=== PATIENT | female | born 1965 | race American Indian/Alaskan Native ===

== ENCOUNTER 2020-09-26 15:27 | Emergency (ER) | payer BC ==
--- NOTE | 2020-09-26 16:07 | Event Note ---
ED Screening Note Date of service: 09/26/20 Time: 16:06 ED Screening Note: 54-year-old -Maur[place] female presents to the emergency room for acute left side flank pain with hematuria. This initial assessment/diagnostic orders/clinical plan/treatment(s) is/are subject to change based on patients health status, clinical progression and re- assessment by fellow clinical providers in the ED. Further treatment and workup at subsequent clinical providers discretion. Patient/guardian urged not to elope from the ED as their condition may be serious if not clinically assessed and managed. Initial orders include:
[2020-09-26 16:38] LABS: Bilirubin,Urine NEG (Negative); Blood,Urine LG (Negative); Color,Urine Yellow (Yellow); Mucus,Urine 1+ /HPF; Protein,Urine <15 mg/dL mg/dL (Negative); Urobilinogen,Urine < 2.0 mg/dL (<2.0)
[2020-09-26] MEDS ORDERED: KETOROLAC 30 MG/1 ML INJ IV ONE (18:38)
[2020-09-26] MEDS ORDERED: SODIUM CHLORIDE 0.9% 1000 ML 1,000 ML IV ONE (18:38)
--- NOTE | 2020-09-26 19:29 | Emergency Department Report ---
ED Abdominal Pain HPI - General Chief Complaint: Urogenital-Female Stated Complaint: LT SIDE PAIN/BLOOD IN STOOL Source: patient Mode of arrival: Ambulatory Limitations: No Limitations - History of Present Illness Initial Comments: Patient is a 54-year-old -Beninese female with of past medical history kidney stones who presents to the ED with complaint of acute onset persistent severe left flank pain that radiates to the left lower back, left lower quadrant and suprapubic area with nausea constantly for the last 2 days. Patient also complains of dysuria, urinary frequency and urgency. Patient states that the pain has worsened especially in the last 12 hours. Patient states that she has not been able to sleep or rest because of constant sharp pain in the left flank that radiates to the suprapubic and left lower quadrant area. Patient states that initially she had thought that the pain was from her back but it got worse and decided come to the ED for evaluation. Patient denies fever, chills, vomiting, diarrhea, dizziness, syncope, cough, chest pain, shortness of breath, fall, heavy lifting, traumatic injury, numbness and tingling or weakness of lower extremities bilaterally, vaginal bleeding or vaginal discharge. MD Complaint: abdominal pain (suprapubic), flank pain (left), other (nausea) -: Sudden, days(s) (2) Location: LLQ, suprapubic, L flank Radiation: LLQ, suprapubic, L flank Migration to: no migration Severity scale (0 -10): 10 Quality: aching, sharp Consistency: constant Improves With: nothing Worsens With: nothing Associated Symptoms: denies other symptoms, nausea, anorexia. denies: vomiting, diarrhea, fever, chills, constipation, dysuria, hematemesis, hematochezia, melena, hematuria, syncope - Related Data Previous Rx's Medication Instructions Recorded Last Taken Type HYDROcodone/APAP 5-325 [[place] 1 each PO Q6HR PRN #10 tablet 11/13/18 Unknown Rx 5/325] Prednisone [predniSONE 10 mg 10 mg PO .TAPER #1 tab.ds.pk 11/13/18 Unknown Rx (6-Day Pack, 21 Tabs)] Acetaminophen/Codeine [Tylenol 1 tab PO Q6H PRN #12 tab 09/26/20 Unknown Rx /Codeine # 3 tab] Ketorolac [Toradol] 10 mg PO Q8H PRN #20 tablet 09/26/20 Unknown Rx Ondansetron [Zofran Odt] 4 mg PO Q6HR PRN #15 tab.rapdis 09/26/20 Unknown Rx Tamsulosin [Flomax] 0.4 mg PO QDAY #10 cap 09/26/20 Unknown Rx Allergies Allergy/AdvReac Type Severity Reaction Status Date / Time No Known Allergies Allergy Unverified 11/13/18 10:33 ED Review of Systems ROS: Stated complaint: LT SIDE PAIN/BLOOD IN STOOL Other details as noted in HPI Constitutional: denies: chills, fever Eyes: denies: eye pain, eye discharge, vision change ENT: denies: ear pain, throat pain Respiratory: denies: cough, shortness of breath, wheezing Cardiovascular: denies: chest pain, palpitations Endocrine: no symptoms reported Gastrointestinal: abdominal pain (left flank pain, suprapubic and LLQ painm), n ausea. denies: diarrhea Genitourinary: denies: urgency, dysuria, discharge Musculoskeletal: denies: back pain, joint swelling, arthralgia Skin: denies: rash, lesions Neurological: denies: headache, weakness, paresthesias Psychiatric: denies: anxiety, depression Hematological/Lymphatic: denies: easy bleeding, easy bruising ED Past Medical Hx - Past Medical History Previous Medical History?: No - Surgical History Past Surgical History?: No - Social History Smoking Status: Former Smoker Substance Use Type: None - Medications Home Medications: Home Medications Medication Instructions Recorded Confirmed Last Taken Type HYDROcodone/APAP 5-325 [[place] 1 each PO Q6HR PRN #10 tablet 11/13/18 Unknown Rx 5/325] Prednisone [predniSONE 10 mg 10 mg PO .TAPER #1 tab.ds.pk 11/13/18 Unknown Rx (6-Day Pack, 21 Tabs)] Acetaminophen/Codeine [Tylenol 1 tab PO Q6H PRN #12 tab 09/26/20 Unknown Rx /Codeine # 3 tab] Ketorolac [Toradol] 10 mg PO Q8H PRN #20 tablet 09/26/20 Unknown Rx Ondansetron [Zofran Odt] 4 mg PO Q6HR PRN #15 tab.rapdis 09/26/20 Unknown Rx Tamsulosin [Flomax] 0.4 mg PO QDAY #10 cap 09/26/20 Unknown Rx ED Physical Exam - General Limitations: No Limitations General appearance: alert, in no apparent distress - Head Head exam: Present: atraumatic, normocephalic, normal inspection - Eye Eye exam: Present: normal appearance, PERRL, EOMI Pupils: Present: normal accommodation - ENT ENT exam: Present: normal exam, normal orophraynx, mucous membranes moist, TM's normal bilaterally, normal external ear exam - Neck Neck exam: Present: normal inspection, full ROM - Respiratory Respiratory exam: Present: normal lung sounds bilaterally. Absent: respiratory distress, wheezes, rales, rhonchi, chest wall tenderness, accessory muscle use, decreased breath sounds, prolonged expiratory - Cardiovascular Cardiovascular Exam: Present: regular rate, normal rhythm, normal heart sounds. Absent: systolic murmur, diastolic murmur, rubs, gallop - GI/Abdominal GI/Abdominal exam: Present: soft, tenderness (Palpable left flank, suprapubic and LLQ tenderness), normal bowel sounds. Absent: distended, guarding, rebound, hyperactive bowel sounds, hypoactive bowel sounds, mass - Extremities Exam Extremities exam: Present: normal inspection, full ROM, normal capillary refill - Back Exam Back exam: Present: normal inspection, full ROM, tenderness (Palpable left lumbosacral paraspinal musculoskeletal tenderness, and left CVA tenderness), CVA tenderness (L), muscle spasm, paraspinal tenderness. Absent: CVA tenderness (R) - Neurological Exam Neurological exam: Present: alert, oriented X3, CN II-XII intact, normal gait, reflexes normal - Psychiatric Psychiatric exam: Present: normal affect, normal mood - Skin Skin exam: Present: warm, dry, intact, normal color. Absent: rash ED Course Vital Signs 09/26/20 09/26/20 15:37 18:44 Temperature 98.2 F Pulse Rate 76 Respiratory 16 24 Rate Blood Pressure 136/76 O2 Sat by Pulse 98 Oximetry ED Medical Decision Making - Lab Data Result diagrams: 09/26/20 19:09 09/26/20 19:09 - Radiology Data Radiology results: report reviewed, image reviewed Findings [facility] [address] [place] [address] Cat Scan Report Signed Patient: YECENIA DHILLON MR#: [id number] 6 : 1965 Acct:[id number] Age/Sex: 54 / F ADM Date: 09/26/20 Loc: ED Attending Dr: Ordering Physician: SONI TENA Date of Service: 09/26/20 Procedure(s): CT abdomen pelvis wo con Accession Number(s): [id number] cc: SONI TENA CT abdomen pelvis wo con INDICATION: Left side flank pain with hematuria. TECHNIQUE: All CT scans at this location are performed using the following dose modulation technique: Automated exposure control. Helical slices were obtained through the abdomen and pelvis. No contrast is administered. COMPARISON: None available. FINDINGS: Abdomen: No acute abnormality is seen in the lower chest. The liver, spleen, pancreas, adrenal glands, and small bowel show no acute abnormality. There is mild left hydronephrosis. There is a 4 mm stone at the left ureterovesical junction. There is swelling of the left kidney and mild perinephric edema on the left. There is a cyst in the mid left kidney. The right kidney is unremarkable. Pelvis: The appendix is normal in appearance. There is no obstruction or free air. There are a few phleboliths. On review of bone windows, no acute osseous abnormalities are seen. IMPRESSION: 1. There is a 4 mm stone at the left ureterovesical junction resulting in mild left hydroureteronephrosis. Signer Name: Keegan Benites MD Signed: 09/26/2020 9:43 PM Workstation Name: [id number] Transcribed By: SS Dictated By: Keegan Benites MD Electronically Authenticated By: Keegan Benites MD Signed Date/Time: 09/26/202142 DD/ 38 TD/TT: - Medical Decision Making This is a 54-year-old -Beninese female with of past medical history kidney stones who presents to the ED with complaint of acute onset persistent severe left flank pain that radiates to the left lower back, left lower quadrant and suprapubic area with nausea constantly for the last 2 days. Patient also complains of dysuria, urinary frequency and urgency. Patient states that the pain has worsened especially in the last 12 hours. Patient states that she has not been able to sleep or rest because of constant sharp pain in the left flank that radiates to the suprapubic and left lower quadrant area. Patient states that initially she had thought that the pain was from her back but it got worse and decided come to the ED for evaluation. In the ED, patient is alert and oriented x3 and is not in distress. Patient however appears to be in significant pain and is hemodynamically stable. Patient was treated for pain with Toradol, and also given normal saline 1 L IV bolus x1. Abdomen pelvis CT scan without contrast showed a 4 mm stone at the left ureterovesical junction resulting in mild left hydroureteronephrosis. Lab test results were reviewed and showed mild acute leukocytosis of 11,200 and large hematuria in urinalysis. The rest of the lab test results are nonactionable. On reevaluation, patient's pain is well controlled medications. Patient was discharged home on pain me dication and antiemetics as well as Flomax and was advised to follow-up with her primary care physician in 7 to 10 days for reevaluation. Return to the ED immediately if symptoms get worse. Patient was also referred to the urologist Dr. Antwon Taylor for follow up. Patient was advised to contact Dr. Vee's office in the next 2 -3 days for reevaluation. - Differential Diagnosis Kidney stones; UTI; Pyelonephritis; Diverticulitis; Colitis; Appendicitis Critical care attestation.: If time is entered above; I have spent that time in minutes in the direct care of this critically ill patient, excluding procedure time. ED Disposition Clinical Impression: Acute abdominal pain in left flank, Calculus of left kidney Disposition: DC-01 TO HOME OR SELFCARE Is pt being admited?: No Does the pt Need Aspirin: No Condition: Stable Instructions: Abdominal Pain, Adult, [id number], Flank Pain, Adult, [id number], Renal Colic, [id number], Kidney Stones, [id number] Additional Instructions: The abdomen pelvis CT scan without contrast showed left UVJ 4 mm stone with mild hydronephrosis. Therefore take medications with food, drink plenty of fluids and follow-up with the urologist Dr. Vee for further evaluation. Return to the ED immediately if symptoms get worse. Otherwise follow-up with your primary care physician in 5 to 7 days for reevaluation. Prescriptions: Tamsulosin [Flomax] 0.4 mg PO QDAY #10 cap Ketorolac [Toradol] 10 mg PO Q8H PRN #20 tablet PRN Reason: Pain Acetaminophen/Codeine [Tylenol /Codeine # 3 tab] 1 tab PO Q6H PRN #12 tab PRN Reason: Pain , Severe (7-10) Ondansetron [Zofran Odt] 4 mg PO Q6HR PRN #15 tab.rapdis PRN Reason: Nausea Referrals: SAI BARNES DO [Primary Care Provider] - 3-5 Days LAURA VEE MD [Staff Physician] - 3-5 Days Time of Disposition: 22:26 Print Language: GREEK
[2020-09-26 19:30] LABS: Basophils # (Auto) 0.1 K/mm3 (0.0-0.1); Basophils % (Auto) 0.8 % (0.0-1.8); Eosinophils # (Auto) 0.1 K/mm3 (0.0-0.4); Eosinophils % (Auto) 0.7 % (0.0-4.3); Hematocrit 43.4 % (30.3-42.9); Hemoglobin 14.3 gm/dl (10.1-14.3); Lymphocytes % (Auto) 18.1 % (13.4-35.0); Mean Corpuscular HGB Conc 33 % (30-34); Mean Corpuscular Volume 86 fl (79-97); Monocytes # (Auto) 0.9 K/mm3 (0.0-0.8); Monocytes % (Auto) 8.4 % (0.0-7.3); Platelet Count 179 K/mm3 (140-440); Red Blood Count 5.04 M/mm3 (3.65-5.03); Red Cell Distribution Width 13.5 % (13.2-15.2)
[2020-09-26 19:52] LABS: Albumin 3.9 g/dL (3.9-5); Calcium 9.6 mg/dL (8.4-10.2)
--- NOTE | 2020-09-26 21:47 | Cat Scan Report ---
CT abdomen pelvis wo con INDICATION: Left side flank pain with hematuria. TECHNIQUE: All CT scans at this location are performed using the following dose modulation technique: Automated exposure control. Helical slices were obtained through the abdomen and pelvis. No contrast is adminis tered. COMPARISON: None available. FINDINGS: Abdomen: No acute abnormality is seen in the lower chest. The liver, spleen, pancreas, adrenal glands, and small bowel show no acute abnormality. There is mild left hydronephrosis. There is a 4 mm stone at the left ureterovesical junction. There is swelling of the left kidney and mild perinephric edema on the left. There is a cyst in the mid left kidney. The right kidney is unremarkable. Pelvis: The appendix is normal in appearance. There is no obstruction or free air. There are a few ph leboliths. On review of bone windows, no acute osseous abnormalities are seen. IMPRESSION: 1. There is a 4 mm stone at the left ureterovesical junction resulting in mild left hydroureteronephr osis. Signer Name: Keegan Benites MD Signed: 09/26/2020 9:43 PM Workstation Name: [id number]
[2020-09-26] MEDS ORDERED: ONDANSETRON 4 MG ODT TAB PO ONE (22:31)
[2020-09-26] MEDS ORDERED: TAMSULOSIN 0.4 MG CAP PO ONE (22:31)
[2020-09-26] MEDS ORDERED: oxyCODONE /ACETAMINOPHEN 5-325MG TAB PO ONE (22:32)
[2020-09-26 23:20] VITALS: BP 127/72
== END 2020-09-26 23:15 | disposition home or self-care (01) ==
LOC: ED 15:27
DX: N20.0 Calculus of kidney (principal); R10.32 Left lower quadrant pain; Z87.891 Personal history of nicotine dependence; Z79.899 Other long term (current) drug therapy
CPT/HCPCS: 36415; 74176; 80053; 81001; 83690; 85025; 96361; 96374; 99284; J1885; J7030; Q0162

== ENCOUNTER 2021-01-20 09:09 | Emergency (ER) | payer BC ==
--- NOTE | 2021-01-20 09:20 | Event Note ---
ED Screening Note Date of service: 01/20/21 Time: 09:18 ED Screening Note: 55-year-old female presents to the ER today complaining of sharp pain underneath her left breast. Onset was a couple days ago. She states she injured her left chest after a fall in october (pulled muscle) but no injury since. She states pain was getting better. She reports nausea but no vomiting. This initial assessment/diagnostic orders/clinical plan/treatment(s) is/are subject to change based on patients health status, clinical progression and re- assessment by fellow clinical providers in the ED. Further treatment and workup at subsequent clinical providers discretion. Patient/guardian urged not to elope from the ED as their condition may be serious if not clinically assessed and managed. Initial orders include: CBC, CMP, lipase, EKG, trop, UA
--- NOTE | 2021-01-20 09:46 | XRay Report ---
CHEST 2 VIEWS INDICATION: Left sided chest pain. COMPARISON: None. FINDINGS: Support devices: None. Heart: Within normal limits. Lungs/Pleura: No acute infiltrate. Changes of prior granulomatous exposure. No significant pleural ef fusion. IMPRESSION: Prior granulomatous exposure. Signer Name: Fab Dawson MD Signed: 01/20/2021 9:41 AM Workstation Name: [id number]
[2021-01-20 10:12] LABS: Basophils % (Auto) 0.5 % (0.0-1.8); Eosinophils # (Auto) 0.3 K/mm3 (0.0-0.4); Eosinophils % (Auto) 3.8 % (0.0-4.3); Hematocrit 43.3 % (30.3-42.9); Hemoglobin 14.5 gm/dl (10.1-14.3); Lymphocytes # (Auto) 2.7 K/mm3 (1.2-5.4); Lymphocytes % (Auto) 39.2 % (13.4-35.0); Mean Corpuscular HGB Conc 34 % (30-34); Mean Corpuscular Volume 85 fl (79-97); Monocytes # (Auto) 0.5 K/mm3 (0.0-0.8); Platelet Count 207 K/mm3 (140-440); Red Cell Distribution Width 13.9 % (13.2-15.2)
[2021-01-20 10:21] LABS: Bilirubin,Urine NEG (Negative); Blood,Urine NEG (Negative); Color,Urine Straw (Yellow); Protein,Urine <15 mg/dL mg/dL (Negative); Urobilinogen,Urine < 2.0 mg/dL (<2.0)
[2021-01-20 10:38] LABS: Alanine Aminotransferase 25 units/L (7-56); Albumin 4.1 g/dL (3.9-5); BUN/Creatinine Ratio 11; Blood Urea Nitrogen 9 mg/dL (7-17); Calcium 9.6 mg/dL (8.4-10.2); Hemolysis Index 4
[2021-01-20 10:39] LABS: HCG Qualitative,Urine Negative (Negative)
[2021-01-20] MEDS ORDERED: KETOROLAC 60 MG/2 ML INJ IM ONE (11:37)
--- NOTE | 2021-01-20 11:43 | Emergency Department Report ---
ED Chest Pain HPI - General Chief Complaint: Chest Pain Stated Complaint: LT BREAST PAIN Time Seen by Provider: 01/20/21 11:21 Source: patient Mode of arrival: Ambulatory Limitations: No Limitations - History of Present Illness Initial Comments: 55-year-old female with a past medical history of kidney stones presents to the hospital complaints of recurrent left-sided lower rib/chest pain for the last several days. Patient had similar pain at the end of October status post a fall. She was seen in urgent care and diagnosed with a rib strain. Symptoms improved however, patient has been having a frequent dry cough at night since she quit smoking. She now has worsening sharp left sided lower rib/chest pain. Pain is moderate to severe in intensity. Pain is worse with palpation, movement, coughing, and deep inspiration. Improved with splinting her chest wall. Minimal improvement with Motrin 800 milligrams. She denies shortness of breath, fever, nausea, vomiting, diaphoresis, calf tenderness, leg edema, recent travel, history of PE/DVT. PMD: Dr. Mcdermott Severity scale (0 -10): 8 - Related Data Previous Rx's Medication Instructions Recorded Last Taken Type HYDROcodone/APAP 5-325 [[place] 1 each PO Q6HR PRN #10 tablet 11/13/18 Unknown Rx 5/325] Prednisone [predniSONE 10 mg 10 mg PO .TAPER #1 tab.ds.pk 11/13/18 Unknown Rx (6-Day Pack, 21 Tabs)] Acetaminophen/Codeine [Tylenol 1 tab PO Q6H PRN #12 tab 09/26/20 Unknown Rx /Codeine # 3 tab] Ketorolac [Toradol] 10 mg PO Q8H PRN #20 tablet 09/26/20 Unknown Rx Ondansetron [Zofran Odt] 4 mg PO Q6HR PRN #15 tab.rapdis 09/26/20 Unknown Rx Tamsulosin [Flomax] 0.4 mg PO QDAY #10 cap 09/26/20 Unknown Rx Ibuprofen [Motrin] 800 mg PO Q8HR PRN #20 tablet 01/20/21 Unknown Rx traMADoL [Ultram 50 MG tab] 50 mg PO Q6HR PRN #20 tablet 01/20/21 Unknown Rx Allergies Allergy/AdvReac Type Severity Reaction Status Date / Time No Known Allergies Allergy Verified 01/20/21 09:12 Heart Score - HEART Score History: Slightly suspicious EKG: Normal Age: 45-65 Risk factors: 1-2 risk factors Troponin: < normal limit HEART Score: 2 ED Review of Systems ROS: Stated complaint: LT BREAST PAIN Other details as noted in HPI Comment: All other systems reviewed and negative ED Past Medical Hx - Past Medical History Previous Medical History?: Yes Additional medical history: Kidney stone - Surgical History Past Surgical History?: No - Social History Smoking Status: Current Every Day Smoker Substance Use Type: None - Medications Home Medications: Home Medications Medication Instructions Recorded Confirmed Last Taken Type HYDROcodone/APAP 5-325 [[place] 1 each PO Q6HR PRN #10 tablet 11/13/18 Unknown Rx 5/325] Prednisone [predniSONE 10 mg 10 mg PO .TAPER #1 tab.ds.pk 11/13/18 Unknown Rx (6-Day Pack, 21 Tabs)] Acetaminophen/Codeine [Tylenol 1 tab PO Q6H PRN #12 tab 09/26/20 Unknown Rx /Codeine # 3 tab] Ketorolac [Toradol] 10 mg PO Q8H PRN #20 tablet 09/26/20 Unknown Rx Ondansetron [Zofran Odt] 4 mg PO Q6HR PRN #15 tab.rapdis 09/26/20 Unknown Rx Tamsulosin [Flomax] 0.4 mg PO QDAY #10 cap 09/26/20 Unknown Rx Ibuprofen [Motrin] 800 mg PO Q8HR PRN #20 tablet 01/20/21 Unknown Rx traMADoL [Ultram 50 MG tab] 50 mg PO Q6HR PRN #20 tablet 01/20/21 Unknown Rx ED Physical Exam - General Limitations: No Limitations - Other Other exam information: General: No acute distress Head: Atraumatic Eyes: normal appearance ENT: Moist mucous membranes Neck: Normal appearance, no midline tenderness Chest: Clear to auscultation bilaterally, reproducible left lower anterior lateral rib tenderness with palpation. Pain also worsens with movement, cough, laughing, and deep inspiration CV: Regular rate and rhythm Abdomen: Soft, normal bowel sounds, nontender, nondistended, no rebound or guarding Back: Normal inspection Extremity: Normal inspection, full range of motion, no calf tenderness or leg edema Neuro: Alert O x 3, no facial asymmetry, speech clear, no gross motor sensory deficit Psych: Appropriate behavior Skin: No rash ED Course Vital Signs 01/20/21 01/20/21 09:16 11:28 Temperature 97.7 F Pulse Rate 75 60 Respiratory 18 13 Rate Blood Pressure 163/86 Blood Pressure 141/77 [Left] O2 Sat by Pulse 100 100 Oximetry AYAKA score - Ayaka Score Age > 65: (0) No Aspirin use within the Past 7 Days: (0) No 3 or more CAD Risk Factors: (0) No 2 or more Angina events in past 24 hrs: (0) No Known CAD with more than 50% Stenosis: (0) No Elevated Cardiac Markers: (0) No ST Deviation Greater than 0.5mm: (0) No AYAKA Score: 0 ED Medical Decision Making - Lab Data Result diagrams: 01/20/21 09:30 01/20/21 09:30 Lab Results 01/20/21 01/20/21 01/20/21 Range/Units 09:30 09:30 09:30 WBC 6.8 (4.5-11.0) K/mm3 RBC 5.10 H (3.65-5.03) M/mm3 Hgb 14.5 H (10.1-14.3) gm/dl Hct 43.3 H (30.3-42.9) % MCV 85 (79-97) fl MCH 29 (28-32) pg MCHC 34 (30-34) % RDW 13.9 (13.2-15.2) % Plt Count 207 (140-440) K/mm3 Lymph % (Auto) 39.2 H (13.4-35.0) % [place] % (Auto) 7.0 (0.0-7.3) % Eos % (Auto) 3.8 (0.0-4.3) % Baso % (Auto) 0.5 (0.0-1.8) % Lymph # (Auto) 2.7 (1.2-5.4) K/mm3 [place] # (Auto) 0.5 (0.0-0.8) K/mm3 Eos # (Auto) 0.3 (0.0-0.4) K/mm3 Baso # (Auto) 0.0 (0.0-0.1) K/mm3 Seg Neutrophils % 49.5 (40.0-70.0) % Seg Neutrophils # 3.4 (1.8-7.7) K/mm3 Sodium 136 L (137-145) mmol/L Potassium 4.4 (3.6-5.0) mmol/L Chloride 101.0 (98-107) mmol/L Carbon Dioxide 28 (22-30) mmol/L Anion Gap 11 mmol/L BUN 9 (7-17) mg/dL Creatinine 0.8 (0.6-1.2) mg/dL Estimated GFR > 60 ml/min BUN/Creatinine Ratio 11 % Glucose 93 (65-100) mg/dL Calcium 9.6 (8.4-10.2) mg/dL Total Bilirubin 0.30 (0.1-1.2) mg/dL AST 20 (5-40) units/L ALT 25 (7-56) units/L Alkaline Phosphatase 102 (35-129) units/L Troponin T < 0.010 (0.00-0.029) ng/mL Total Protein 7.0 (6.3-8.2) g/dL Albumin 4.1 (3.9-5) g/dL Albumin/Globulin Ratio 1.4 % Lipase 29 (13-60) units/L Urine Color (Yellow) Urine Turbidity (Clear) Urine pH (5.0-7.0) Ur Specific [place] (1.003-1.030) Urine Protein (Negative) mg/dL Urine Glucose (UA) (Negative) mg/dL Urine Ketones (Negative) mg/dL Urine Blood (Negative) Urine Nitrite (Negative) Urine Bilirubin (Negative) Urine Urobilinogen (<2.0) mg/dL Ur Leukocyte Esterase (Negative) Urine WBC (Auto) (0.0-6.0) /HPF Urine RBC (Auto) (0.0-6.0) /HPF U Epithel Cells (Auto) (0-13.0) /HPF Urine HCG, Qual (Negative) 01/20/21 Range/Units 10:10 WBC (4.5-11.0) K/mm3 RBC (3.65-5.03) M/mm3 Hgb (10.1-14.3) gm/dl Hct (30.3-42.9) % MCV (79-97) fl MCH (28-32) pg MCHC (30-34) % RDW (13.2-15.2) % Plt Count (140-440) K/mm3 Lymph % (Auto) (13.4-35.0) % [place] % (Auto) (0.0-7.3) % Eos % (Auto) (0.0-4.3) % Baso % (Auto) (0.0-1.8) % Lymph # (Auto) (1.2-5.4) K/mm3 [place] # (Auto) (0.0-0.8) K/mm3 Eos # (Auto) (0.0-0.4) K/mm3 Baso # (Auto) (0.0-0.1) K/mm3 Seg Neutrophils % (40.0-70.0) % Seg Neutrophils # (1.8-7.7) K/mm3 Sodium (137-145) mmol/L Potassium (3.6-5.0) mmol/L Chloride (98-107) mmol/L Carbon Dioxide (22-30) mmol/L Anion Gap mmol/L BUN (7-17) mg/dL Creatinine (0.6-1.2) mg/dL Estimated GFR ml/min BUN/Creatinine Ratio % Glucose (65-100) mg/dL Calcium (8.4-10.2) mg/dL Total Bilirubin (0.1-1.2) mg/dL AST (5-40) units/L ALT (7-56) units/L Alkaline Phosphatase (35-129) units/L Troponin T (0.00-0.029) ng/mL Total Protein (6.3-8.2) g/dL Albumin (3.9-5) g/dL Albumin/Globulin Ratio % Lipase (13-60) units/L Urine Color Straw (Yellow) Urine Turbidity Clear (Clear) Urine pH 7.0 (5.0-7.0) Ur Specific [place] 1.006 (1.003-1.030) Urine Protein <15 mg/dl (Negative) mg/dL Urine Glucose (UA) Neg (Negative) mg/dL Urine Ketones Neg (Negative) mg/dL Urine Blood Neg (Negative) Urine Nitrite Neg (Negative) Urine Bilirubin Neg (Negative) Urine Urobilinogen < 2.0 (<2.0) mg/dL Ur Leukocyte Esterase Neg (Negative) Urine WBC (Auto) 1.0 (0.0-6.0) /HPF Urine RBC (Auto) 2.0 (0.0-6.0) /HPF U Epithel Cells (Auto) 1.0 (0-13.0) /HPF Urine HCG, Qual Negative (Negative) - EKG Data -: EKG Interpreted by Me EKG shows normal: sinus rhythm, ST-T waves (No STEMI) Rate: normal - Radiology Data Radiology results: report reviewed CHEST 2 VIEWS INDICATION: Left sided chest pain. COMPARISON: None. FINDINGS: Support devices: None. Heart: Within normal limits. Lungs/Pleura: No acute infiltrate. Changes of prior granulomatous exposure. No significant pleural effusion. IMPRESSION: Prior granulomatous exposure. - Medical Decision Making 55-year-old female presents to the hospital with a left-sided rib pain that appears to be muscle skeletal in origin. Suspect that patient reinjured her rib/intercostal muscles due to coughing episodes that have increased since she quit smoking. ED work-up unremarkable including EKG, chest x-ray, labs/cardiac enzymes. Heart score 2. No PE/DVT risk factors. Patient received Toradol in the ED will be discharged on Motrin and tramadol for pain as needed peer outpatient follow-up encouraged Critical Care Time: No Critical care attestation.: If time is entered above; I have spent that time in minutes in the direct care of this critically ill patient, excluding procedure time. ED Disposition Clinical Impression: Chest wall muscle strain Disposition: - TO HOME OR SELFCARE Is pt being admited?: No Does the pt Need Aspirin: No Condition: Stable Instructions: Chest Wall Pain Additional Instructions: Take the medication as prescribed. Follow-up with your doctor or doctor/clinic provided. Return if symptoms worsen as indicated by your discharge instructions. Prescriptions: Ibuprofen [Motrin] 800 mg PO Q8HR PRN #20 tablet PRN Reason: Pain , Severe (7-10) traMADoL [Ultram 50 MG tab] 50 mg PO Q6HR PRN #20 tablet PRN Reason: Pain , Severe (7-10) Referrals: SAI MCDERMOTT DO [Primary Care Provider] - 3-5 Days Time of Disposition: 11:47
[2021-01-20 12:34] VITALS: BP 139/80
== END 2021-01-20 12:38 | disposition home or self-care (01) ==
LOC: ED 09:09
DX: S29.011A Strain of muscle and tendon of front wall of thorax, initial encounter (principal); F17.200 Nicotine dependence, unspecified, uncomplicated; Z79.1 Long term (current) use of non-steroidal anti-inflammatories (NSAID); Z79.899 Other long term (current) drug therapy; X58.XXXA Exposure to other specified factors, initial encounter; Y93.89 Activity, other specified; Y92.89 Other specified places as the place of occurrence of the external cause; Y99.8 Other external cause status
CPT/HCPCS: 36415; 71046; 80053; 81001; 81025; 83690; 84484; 85025; 93005; 96372; 99284; J1885